=== PATIENT | male | born 1985 | race Two or more races ===

== ENCOUNTER 2018-08-11 19:37 | Emergency (ER) | payer BC, OTHER ==
[~2018-08-11] VITALS: Ht 172.7 cm; Wt 81.6 kg
[2018-08-11 19:51] VITALS: BP 131/88
--- NOTE | 2018-08-11 19:53 | NUR ---
ER Nurse Note: Pt came from home c/o right groin redness and swelling. Pt stated he noticed "something" in the RT groin 2 days ago but got worse within the last 24 hrs. Mass red, warm to touch, hard. Skin intact, no drainage. 11/30 pain. Will conitnue to [facility].
--- NOTE | 2018-08-11 20:40 | NUR ---
ER Nurse Note: Pt seen by Dr. Verma. Drained the mass, pt tolerated well. Wound site care completed, provided pt with supplies. Accu Check was ordered; result 98mmol/L and MD aware. Pt ready for discharge.
[2018-08-11] MEDS ORDERED: CEPHALEXIN500 MG ORAL (20:50)
[2018-08-11] MEDS ORDERED: IBUPROFEN600 MG ORAL (20:50)
[2018-08-11] MEDS ORDERED: VIBRAMYCIN100 MG ORAL (20:50)
[2018-08-11 21:05] VITALS: BP 134/84
--- NOTE | 2018-08-11 21:05 | NUR ---
ER Nurse Note: Pt seen, treated, medically cleared for discharge by ERMD. Discharge instuctions and prescriptions given with repeat verbalization by pt. All orders completed per ERMD orders. Pt a&ox4, VSS, no signs of distress. ID band removed. Pt ambulaitory with steady gait, left with all belongings, left with own transportation.
--- NOTE | 2018-08-11 22:12 | Emergency Room Report ---
History of Present Illness General Chief Complaint: Skin Rash/Abscess Source: Patient Present Illness HPI Patient is a 32-year-old male who presented after increased right inguinal discomfort as well as swelling. Patient reports having onset of symptoms approximately 2 days ago. He had noticed a small bump to the area which had enlarged in size. He reports having some fever. He denies any penile discharge or ulcerations. He had not been losing weight. He denies any prior history of diabetes or immunocompromise. He reports having some recent unprotected sex. Allergies: Coded Allergies: No Known Allergies (Unverified , 08/11/18) Patient History Past Medical History: see triage record Reviewed Nursing Documentation: PMH: Agreed; PSxH: Agreed Nursing Documentation-PMH Past Medical History: No Stated History Review of Systems All Other Systems: negative except mentioned in HPI Physical Exam Vital Signs Date Time Temp Pulse Resp B/P (MAP) Pulse Ox O2 Delivery O2 Flow Rate FiO2 08/11/18 19:42 100.4 103 18 131/88 (102) 95 Room Air General Appearance: well appearing, no apparent distress, alert, GCS 15 Head: normocephalic, atraumatic ENT: hearing grossly normal, normal voice Neck: full range of motion, supple Respiratory: no respiratory distress, speaking full sentences Cardiovascular #1: normal inspection, regular rate, rhythm Musculoskeletal: no calf tenderness Neurologic: normal inspection, alert, oriented x3, responsive, 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 III-XII nml as tested, normal gait Psychiatric: mood/affect normal Skin: other - erythema, prominent hair follicle Procedures Incision and Drainage Incision and Drainage : Blade Size: 11 I & D Procedure: betadine prep, sterile drapes applied Wound's Depth, Shape: superficial Wound Length (cm): 1 Wound Explored: clean Irrigated w/ Saline (ccs): 30 Anesthesia: Lidocaine w/ Epi Volume Anesthetic (ccs): 5 Patient Tolerated: Well Complications: None Medical Decision Making Diagnostic Impression: Primary Impression: Abscess ER Course Patient is a 32-year-old male presented after increased right inguinal swelling. Differential diagnosis include was not limited to abscess, infected lymph node, folliculitis among others. Patient did have some evidence of superficial infection to the right lower abdomen. Bedside ultrasound was performed which showed some evidence of abscess. Patient was consented for incision and drainage. I incised and drained a approximately 10 mL's of purulent material. Patient tolerated this well. He was started on doxycycline as well as Keflex. Patient was advised to follow-up with his primary care physician for recheck as well as further testing to include STDs.Patient advised to return sooner if he had any worsening condition or other concerns. Accu-Chek showed blood sugar less than 100. Last Vital Signs Date Time Temp Pulse Resp B/P (MAP) Pulse Ox O2 Delivery O2 Flow Rate FiO2 08/11/18 21:05 99.5 76 18 134/84 97 Room Air Status: improved Disposition: HOME, SELF-CARE Condition: Stable Scripts Ibuprofen* (MOTRIN*) 600 Mg Tablet 600 MG ORAL Q8H PRN for For Pain, #30 TAB 0 Refills Prov: Ang Verma MD 08/11/18 Cephalexin* (KEFLEX*) 500 Mg Capsule 500 MG ORAL EVERY 6 HOURS, #28 CAP Prov: Ang Verma MD 08/11/18 Doxycycline Hyclate* (VIBRAMYCIN*) 100 Mg Capsule 100 MG ORAL EVERY 12 HOURS, #14 CAP 0 Refills Prov: Ang Verma MD 08/11/18 Referrals: [facility],REFERRING (PCP) Patient Instructions: Ang Delgadillo MD Aug 11, 2018 22:12
== END 2018-08-11 21:05 | disposition home or self-care (01) ==
LOC: EMR 19:55
DX: L02.214 Cutaneous abscess of groin (principal)
CPT/HCPCS: 10060; 82962; 99283